=== PATIENT | female | born 1970 | race Caucasian/White ===

== ENCOUNTER → 2018-10-07 | Outpatient (CLI) | payer OTHER ==
[~2018-10-07] MED LIST: GADOBUTROL 10 MMOL/10 ML VIAL ONE
== END | disposition home or self-care (01) ==
LOC: CFH 10:23
PROVIDERS: ATTEND Surgery
DX: C50.211 Malignant neoplasm of upper-inner quadrant of right female breast (principal); N64.89 Other specified disorders of breast; R22.2 Localized swelling, mass and lump, trunk; Z80.3 Family history of malignant neoplasm of breast
CPT/HCPCS: A9585; C8908; C8937

== ENCOUNTER 2018-10-14 10:03 | Day surgery (SDC) | payer OTHER ==
[~2018-10-14] VITALS: Ht 160 cm; Wt 86.8 kg
[~2018-10-14 10:03] MED LIST changes: +BUPIVACAINE/PF-EPI 0.5% 1:200K ONE; -GADOBUTROL 10 MMOL/10 ML VIAL ONE; +ISOSULFAN BLUE 10 MG/ML, 5ML IV ONE
[2018-10-14] MEDS ORDERED: ACETAMINOPHEN 500 MG TABLET PO ONE ×2 (10:30→11:30)
[2018-10-14] MEDS ORDERED: GABAPENTIN 300 MG CAPSULE PO ONE ×2 (10:30→11:30)
[2018-10-14] MEDS ORDERED: SCOPOLAMINE PATCH, 1.5MG PATCH.TD72 TD ONE ×2 (10:30→11:30)
[2018-10-14] MEDS ORDERED: PLEASE ENTER HEIGHT AND WEIGHT MC SCH (10:30)
[2018-10-14] MEDS ORDERED: ONDANSETRON ODT 8 MG PO ONE ×2 (10:30→11:30)
[2018-10-14] MEDS ORDERED: LIDOCAINE 1%, 20ML ONE (10:37)
[2018-10-14] MEDS ORDERED: MIDAZOLAM 1 MG/ML, 2ML ONE (10:53)
[2018-10-14] MEDS ORDERED: FENTANYL PF 250 MCG/5ML ONE (10:53)
[2018-10-14 11:06] VITALS: BP 119/82
[2018-10-14] MEDS ORDERED: LACTATED RINGERS 1,000 ML IV SCH (11:16)
[2018-10-14] MEDS ORDERED: LIDOCAINE-MPF 1%, 2ML INFIL ONE (11:30)
[2018-10-14] MEDS ORDERED: [UNRECOGNIZED DRUG - REMARK] MC SCH (11:30)
[2018-10-14] MEDS ORDERED: DEXAMETHASONE 4 MG/ML, 1ML ONE (11:59)
[2018-10-14] MEDS ORDERED: CEFAZOLIN 1,000 MG ONE (11:59)
[2018-10-14] MEDS ORDERED: ROCURONIUM 10 MG/ML,10ML ONE (11:59)
[2018-10-14] MEDS ORDERED: SUCCINYLCHOLINE 20 MG/ML, 10ML ONE (11:59)
[2018-10-14] MEDS ORDERED: ONDANSETRON 2MG/ML, 2ML ONE (11:59)
[2018-10-14] MEDS ORDERED: PROPOFOL 10 MG/ML, 20ML ONE (11:59)
[2018-10-14] MEDS ORDERED: LABETALOL 5 MG/ML SYRINGE IV PRN (12:30)
[2018-10-14] MEDS ORDERED: METOCLOPRAMIDE 5 MG/ML, 2ML IV PRN (12:30)
[2018-10-14] MEDS ORDERED: MEPERIDINE/PF 25MG/0.5ML IVPush PRN (12:30)
[2018-10-14] MEDS ORDERED: hydrALAzine 20 MG/ML, 1ML IV PRN (12:30)
[2018-10-14] MEDS ORDERED: PROMETHAZINE 25 MG/ML, 1ML IV PRN (12:30)
[2018-10-14] MEDS ORDERED: HYDROmorphone 1 MG/ML, 1ML INJ IV PRN (12:30)
[2018-10-14] MEDS ORDERED: OXYcodone 5 MG/5 ML ORAL.SOL UDC PO PRN (12:30)
[2018-10-14] MEDS ORDERED: ONDANSETRON 2MG/ML, 2ML IVPush PRN (12:30)
[2018-10-14] MEDS ORDERED: ALBUTEROL SULFATE 2.5 MG/3 ML NPPB PRN (12:30)
[2018-10-14] MEDS ORDERED: KETOROLAC 30 MG/1 ML IV PRN (12:30)
[2018-10-14] MEDS ORDERED: FENTANYL PF 100 MCG/2ML IV PRN (12:30)
[2018-10-14] MEDS ORDERED: BUPIVACAINE/PF-EPI 0.5% 1:200K ONE (13:13)
[2018-10-14] MEDS ORDERED: BACITRACIN 50,000 UNIT ONE (13:13)
[2018-10-14] MEDS ORDERED: MEPERIDINE/PF 25MG/ML,1ML ONE (14:13)
== END 2018-10-14 15:52 | disposition home or self-care (01) ==
LOC: OUT 10:03 → EDSTATUS 12:30 → OUT 15:52
PROVIDERS: ATTEND Surgery
DX: D05.11 Intraductal carcinoma in situ of right breast (principal); R59.1 Generalized enlarged lymph nodes; Z90.49 Acquired absence of other specified parts of digestive tract; Z90.710 Acquired absence of both cervix and uterus
CPT/HCPCS: 19301; 38525; 38792; 88307; 88329; A9541; J0330; J0690; J1100; J2175; J2250; J2405; J2704; J3010; J7120; Q0162

== ENCOUNTER 2018-11-04 08:05 | Outpatient (CLI) | payer OTHER | END 2018-11-04 23:59 | disposition home or self-care (01) | LOC: ROC 08:05 | PROVIDERS: ATTEND Radiology Radiation Oncology | DX: Z08 Encounter for follow-up examination after completed treatment for malignant neoplasm (principal); Z85.3 Personal history of malignant neoplasm of breast | CPT/HCPCS: 99214; G0463 ==

== ENCOUNTER → 2018-11-24 | Outpatient (CLI) | payer OTHER ==
[~2018-11-24] MED LIST changes: -BUPIVACAINE/PF-EPI 0.5% 1:200K ONE; +CHOL500045 PO; -ISOSULFAN BLUE 10 MG/ML, 5ML IV ONE; +MOME13HF3 INH; +OMNIPAQUE 350 MG/ML, 100ML BOTTLE ONE
== END | disposition home or self-care (01) ==
LOC: PETCFH 11:38
PROVIDERS: ATTEND Internal Medicine Hematology & Oncology
DX: C50.811 Malignant neoplasm of overlapping sites of right female breast (principal); Z90.49 Acquired absence of other specified parts of digestive tract
CPT/HCPCS: 71260; 74177; 78306; A9503; Q9967

== ENCOUNTER 2018-11-25 09:36 | Day surgery (SDC) | payer OTHER ==
[~2018-11-25] VITALS: Ht 160 cm; Wt 86.8 kg
[~2018-11-25 09:36] MED LIST changes: -OMNIPAQUE 350 MG/ML, 100ML BOTTLE ONE
[2018-11-25] MEDS ORDERED: LACTATED RINGERS 1,000 ML IV SCH (09:54)
[2018-11-25] MEDS ORDERED: ONDANSETRON ODT 8 MG PO ONE (10:00)
[2018-11-25] MEDS: SCOPOLAMINE PATCH, 1.5MG PATCH.TD72 TD ONE ×2 (10:00→10:40)
[2018-11-25] MEDS ORDERED: ACETAMINOPHEN 500 MG TABLET PO ONE (10:00)
[2018-11-25] MEDS ORDERED: GABAPENTIN 300 MG CAPSULE PO ONE (10:00)
[2018-11-25 10:11] VITALS: BP 133/91
[2018-11-25] MEDS ORDERED: FENTANYL PF 100 MCG/2ML ONE (11:09)
[2018-11-25] MEDS ORDERED: MIDAZOLAM 1 MG/ML, 2ML ONE (11:09)
[2018-11-25] MEDS ORDERED: BUPIVACAINE/PF 0.25% ONE (11:11)
[2018-11-25] MEDS ORDERED: HEPARIN 1,000 UNITS/ML, 10ML ONE (11:11)
[2018-11-25] MEDS ORDERED: BUPIVACAINE/PF 0.5% ONE (11:11)
[2018-11-25] MEDS ORDERED: LIDOCAINE 1%-EPI 1:100K, 30ML ONE (11:12)
[2018-11-25] MEDS ORDERED: EPINEPHRINE 1 MG/ML, 1ML ONE (11:12)
[2018-11-25] MEDS ORDERED: SODIUM CHLORIDE 0.9% 0 ML ONE (11:19)
[2018-11-25] MEDS ORDERED: DEXAMETHASONE 4 MG/ML, 1ML ONE (12:04)
[2018-11-25] MEDS ORDERED: PROPOFOL 10 MG/ML, 20ML ONE (12:04)
[2018-11-25] MEDS ORDERED: NEOSTIGMINE 1 MG/ML, 10ML ONE (12:04)
[2018-11-25] MEDS ORDERED: GLYCOPYRROLATE 0.2MG/1ML, 5ML ONE (12:04)
[2018-11-25] MEDS ORDERED: SUCCINYLCHOLINE 20 MG/ML, 10ML ONE (12:04)
[2018-11-25] MEDS ORDERED: CEFAZOLIN 1,000 MG ONE (12:04)
[2018-11-25] MEDS ORDERED: ONDANSETRON 2MG/ML, 2ML ONE (12:04)
[2018-11-25] MEDS ORDERED: ROCURONIUM 10MG/ML,5ML ONE (12:04)
[2018-11-25] MEDS ORDERED: HYDROmorphone 2 MG/ML, 1ML IVPush PRN (13:00)
[2018-11-25] MEDS ORDERED: OXYcodone 5 MG/5 ML ORAL.SOL UDC PO PRN (13:00)
[2018-11-25] MEDS ORDERED: ONDANSETRON 2MG/ML, 2ML IV PRN (13:00)
[2018-11-25] MEDS ORDERED: ONDANSETRON ODT 8 MG PO PRN (13:00)
[2018-11-25] MEDS ORDERED: FENTANYL PF 100 MCG/2ML IV PRN (13:00)
== END 2018-11-25 15:50 | disposition home or self-care (01) ==
LOC: OUT 09:36
PROVIDERS: ATTEND Surgery
DX: C50.211 Malignant neoplasm of upper-inner quadrant of right female breast (principal); J45.909 Unspecified asthma, uncomplicated; E66.9 Obesity, unspecified; Z68.41 Body mass index [BMI] 40.0-44.9, adult; Z17.0 Estrogen receptor positive status [ER+]; Z79.899 Other long term (current) drug therapy; Z88.8 Allergy status to other drugs, medicaments and biological substances; Z90.710 Acquired absence of both cervix and uterus; Z90.11 Acquired absence of right breast and nipple; Z98.890 Other specified postprocedural states; Z80.3 Family history of malignant neoplasm of breast; Z80.0 Family history of malignant neoplasm of digestive organs
CPT/HCPCS: 36561; 71045; 77001; C1769; C1788; J0171; J0330; J0690; J1100; J1644; J2250; J2405; J2704; J2710; J3010; J3490; J7120; Q0162

== ENCOUNTER → 2019-04-26 | Outpatient (CLI) | payer OTHER | END | disposition home or self-care (01) | LOC: EDSTATUS 04-12 18:00 → ROC 07:36 | PROVIDERS: ATTEND Radiology Radiation Oncology | DX: C50.211 Malignant neoplasm of upper-inner quadrant of right female breast (principal) | CPT/HCPCS: 99213; G0463 ==

== ENCOUNTER 2019-06-07 12:33 | Outpatient (CLI) | payer OTHER | END 2019-06-07 23:59 | disposition home or self-care (01) | LOC: CFH 12:33 | PROVIDERS: ATTEND Radiology Radiation Oncology | DX: C50.211 Malignant neoplasm of upper-inner quadrant of right female breast (principal) | CPT/HCPCS: 76642; 77066; G0279 ==

== ENCOUNTER → 2019-12-19 | Outpatient (CLI) | payer OTHER | END | disposition home or self-care (01) | LOC: ROC 07:18 | PROVIDERS: ATTEND Radiology Radiation Oncology | DX: C50.211 Malignant neoplasm of upper-inner quadrant of right female breast (principal); C50.911 Malignant neoplasm of unspecified site of right female breast; Z79.899 Other long term (current) drug therapy | CPT/HCPCS: 99213; G0463 ==

== ENCOUNTER → 2020-06-19 | Outpatient (CLI) | payer OTHER | END | disposition home or self-care (01) | LOC: CFH 07:48 | PROVIDERS: ATTEND Internal Medicine Hematology & Oncology | DX: Z12.39 Encounter for other screening for malignant neoplasm of breast (principal); Z12.31 Encounter for screening mammogram for malignant neoplasm of breast; C50.811 Malignant neoplasm of overlapping sites of right female breast; Z85.3 Personal history of malignant neoplasm of breast | CPT/HCPCS: 76641; 77063; 77067 ==